=== PATIENT | male | born 1975 | race Caucasian/White ===

== ENCOUNTER 2020-10-02 09:54 | Emergency (ER) | payer SELFPAY ==
[~2020-10-02] VITALS: Ht 167.6 cm; Wt 76.2 kg
[2020-10-02 09:57] VITALS: BP 139/75
--- NOTE | 2020-10-02 10:03 | NUR ---
PT AMBULATED TO ER BED 12.
--- NOTE | 2020-10-02 10:11 | NUR ---
45/M presents to ED with c/o right eye pain. Patient states he was at work on Saturday and thinks possibly a rock or dirt got into his eye. Right eye appears red and swollen, patient is able to open eyes. Patient denies vision changes or discharge. Describes pain as 7/10 itching and burning that gets worse with eye movement.
--- NOTE | 2020-10-02 10:46 | NUR ---
Dr. Ryder is evaluating the patient at bedside.
[2020-10-02] MEDS ORDERED: NAPR-54 PO (10:55)
[2020-10-02] MEDS ORDERED: TOBR5SOL17 RIGHT EYE (10:55)
[2020-10-02] MEDS: TETRACAINE HCL/PF 0.5% OPTH 4 ML BTL OP ONE (11:06)
[2020-10-02] MEDS: FLUORESCEIN OPTH STRIP 1 MG OP ONE (11:07)
--- NOTE | 2020-10-02 11:10 | NUR ---
Patient discharged with v/s stable. Written and verbal after care instructions given and explained. Patient alert, oriented and verbalized understanding of instructions. Ambulatory with steady gait. All questions addressed prior to discharge. ID band removed. Patient advised to follow up with PMD. Rx of Naprosyn, Tobramycin given. Patient educated on indication of medication including possible reaction and side effects. Opportunity to ask questions provided and answered.
[2020-10-02 11:14] VITALS: BP 139/75
== END 2020-10-02 11:10 | disposition home or self-care (01) ==
LOC: MED 09:54
DX: S05.01XA Injury of conjunctiva and corneal abrasion without foreign body, right eye, initial encounter (principal); X58.XXXA Exposure to other specified factors, initial encounter; Y93.89 Activity, other specified; Y92.89 Other specified places as the place of occurrence of the external cause; Y99.8 Other external cause status
CPT/HCPCS: 90471; 90715; 99283